=== PATIENT | male | born 1980 | race Caucasian/White ===

== ENCOUNTER 2017-12-01 16:45 | Emergency (ER) | payer OTHER, MEDICAID ==
[~2017-12-01] VITALS: Ht 172.7 cm; Wt 99.8 kg
[~2017-12-01 16:45] MED LIST: AMOXICILLIN 50500 MG PO; ANTIVERT25 MG PO; BACTRIM DS TAB1 EACH PO; CEPHALEXIN 500500 M3 PO; CIPRO500 MG PO; CYCLOBENZAPRINE5 MG PO; CYMBALTA20 MG PO; CYMBALTA60 MG; DOXEPIN 10 MG C10 M1; FLEXERIL PO; GABAPENTIN 100100 MG PO; HYDROCODONE-ACE15 ML PO; HYDROCODONE-AP1 EAC6 PO; HYDROCODONE-APA1 TA1 PO; IBUPROFEN 800800 M1; IBUPROFEN 800800 M1 PO; LIORESAL 10 MG10 MG PO; LISINOPRIL10 MG PO; MEDROLDOSEPACK PO; MOBIC7.5 MG PO; MOTION RELIEF25 MG PO; NAPROSYN500 M1 PO; NORCO 5-325 TA1 EAC1 PO; NORCO 5-325 TA1 EACH PO; OMEPRAZOLE20 M1 PO; OMEPRAZOLE5 GM; ONDANSETRON HCL4 M2 PO; PAXIL10 MG PO; PAXIL20 MG PO; PERCOCET 5-3251 EACH PO; PERCOCET 7.5-31 EACH PO; PROTONIX 20 MG20 M1; ROBAXIN 750 MG750 M1 PO; TORADOL 10 MG T10 MG PO; TRAMADOL 50 MG50 MG PO; XANAX 0.5 MG0.5 MG PO; XANAX1 MG; XANAX1 MG PO; ZANAFLEX4 MG PO; ZOFRAN ODT4 MG PO
[2017-12-01] MEDS ORDERED: LEXAPRO 10 MG T10 M2 PO (16:59)
[2017-12-01 17:58] VITALS: BP 134/78
== END 2017-12-01 17:59 | disposition home or self-care (01) ==
LOC: M.ERS 16:45
DX: S61.412A Laceration without foreign body of left hand, initial encounter (principal); F32.9 Major depressive disorder, single episode, unspecified; F41.9 Anxiety disorder, unspecified; F17.210 Nicotine dependence, cigarettes, uncomplicated; Z88.8 Allergy status to other drugs, medicaments and biological substances; Z88.5 Allergy status to narcotic agent; W27.0XXA Contact with workbench tool, initial encounter; Y93.89 Activity, other specified; Y92.89 Other specified places as the place of occurrence of the external cause; Y99.8 Other external cause status

== ENCOUNTER 2017-12-19 19:23 | Emergency (ER) | payer OTHER, MEDICAID ==
[~2017-12-19] VITALS: Ht 172.7 cm; Wt 90.7 kg
[~2017-12-19 19:23] MED LIST changes: +LEXAPRO 10 MG T10 M2 PO
[2017-12-19 19:44] LABS: URINE BILIRUBIN NEGATIVE (Negative); URINE BLOOD NEGATIVE (Negative); URINE CLARITY CLEAR; URINE COLOR DARK YELLOW; URINE GLUCOSE-RANDOM NEGATIVE (Negative); URINE KETONES NEGATIVE (Negative); URINE LEUKOCYTES-REFLEX NEGATIVE (Negative); URINE NITRITE-REFLEX NEGATIVE (Negative); URINE PROTEIN TRACE (Negative); URINE SPECIFIC GRAVITY >= 1.030 (1.005-1.030); URINE UROBILINOGEN 0.2 E.U./dl (0.2-1.0)
[2017-12-19 19:49] LABS: ABSOLUTE BASOPHILS 0.1 thou/uL (0.0-0.2); ABSOLUTE EOSINOPHILS 0.2 thou/uL (0.0-0.7); ABSOLUTE LYMPHOCYTES 2.5 thou/uL (0.8-5.3); ABSOLUTE MONOCYTES 0.6 thou/uL (0.0-1.2); BASOPHILS 0.6 %; EOSINOPHILS 2.1 %; HEMATOCRIT 44.4 % (42.0-52.0); HEMOGLOBIN 15.2 gm/dL (14.0-18.0); LYMPHOCYTES 22.2 %; MCH 31.2 pg (26.0-34.0); MCHC 34.2 g/dL (28.0-37.0); MCV 91.2 fL (80.0-100.0); MONOCYTES 5.1 %; MPV 7.2 fl. (7.2-11.1); NUCLEATED RBCS 0 /100WBC; PLATELET COUNT* 235 thou/uL (150-400); RBC 4.87 mil/uL (4.50-6.00); RDW-CV 13.5 % (10.5-14.5); WBC 11.4 thou/uL (4.0-11.0)
[2017-12-19 19:50] LABS: AMP/METHAMP POSITIVE (Negative); BARBITURATES Negative (Negative); BENZODIAZEPINES POSITIVE (Negative); COCAINE Negative (Negative); METHADONE Negative (Negative); OPIATES Negative (Negative); PCP Negative (Negative); THC Negative (Negative)
[2017-12-19 20:05] LABS: ANION GAP 9 mmol/L (7-16); BUN 17 mg/dL (7-18); CALCIUM 8.6 mg/dL (8.5-10.1); CHLORIDE 108 mmol/L (98-107); CO2 24 mmol/L (21-32); GLUCOSE 118 mg/dL (70-99); POTASSIUM 3.5 mmol/L (3.5-5.1); SALICYLATE < 2.8 mg/dL (2.8-20.0); SODIUM 141 mmol/L (136-145)
[2017-12-19 20:06] LABS: ACETAMINOPHEN < 2 ug/mL (10-30)
[2017-12-19 20:22] LABS: ALKALINE PHOSPHATASE 78 U/L (46-116); SGOT 28 U/L (15-37); SGPT 37 U/L (30-65); TOTAL BILIRUBIN 0.7 mg/dL (<0.1-1.0); TOTAL PROTEIN 7.2 g/dL (6.4-8.2); TROPONIN-I LEVEL <0.06 ng/mL (<0.06)
[2017-12-19 21:18] VITALS: BP 121/70
--- NOTE | 2017-12-21 14:45 | EKG ---
[place] [address] ELECTROCARDIOGRAM REPORT Name: ORTIZ JEROME 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: MARK : 1980 Requested By: Luzma Arroyo Order Number: [id number] MD: Gt Fulton Measurements Intervals [place] Rate: 101 P: 51 WI: 128 QRS: 3 QRSD: 91 T: 20 QT: 351 QTc: 455 Interpretive Statements Sinus tachycardia Abnormal R-wave progression, late transition Compared to ECG 02/11/2016 10:21:39 Sinus rhythm no longer present Electronically Signed On 12-21-2017 14:45:22 CDT by Gt Fulton [email or web address] <ELECTRONICALLY SIGNED> By: Gt Fulton MD, [facility] 12/21/17 1445 40 40 Gt Fulton MD, FACC /EPI
== END 2017-12-19 21:19 | disposition home or self-care (01) ==
LOC: M.ERS 19:23
PROVIDERS: Emergency Medicine
DX: E86.0 Dehydration (principal); F19.10 Other psychoactive substance abuse, uncomplicated; F41.9 Anxiety disorder, unspecified; F32.9 Major depressive disorder, single episode, unspecified; I10 Essential (primary) hypertension; F17.210 Nicotine dependence, cigarettes, uncomplicated; Z88.6 Allergy status to analgesic agent; Z88.8 Allergy status to other drugs, medicaments and biological substances

== ENCOUNTER 2017-12-20 19:54 | Emergency (ER) | payer OTHER, MEDICAID ==
[~2017-12-20] VITALS: Ht 172.7 cm; Wt 90.7 kg
[2017-12-20 20:46] VITALS: BP 106/54
== END 2017-12-20 20:40 | disposition left against medical advice (07) ==
LOC: M.ERS 19:54
DX: M79.671 Pain in right foot (principal); M79.672 Pain in left foot; F41.9 Anxiety disorder, unspecified; F32.9 Major depressive disorder, single episode, unspecified; I10 Essential (primary) hypertension; F17.210 Nicotine dependence, cigarettes, uncomplicated

== ENCOUNTER 2018-01-25 13:00 | Emergency (ER) | payer OTHER, MEDICAID ==
[~2018-01-25] VITALS: Ht 172.7 cm; Wt 99.8 kg
[2018-01-25 13:35] LABS: URINE BILIRUBIN NEGATIVE (Negative); URINE BLOOD NEGATIVE (Negative); URINE CLARITY CLEAR; URINE COLOR YELLOW; URINE GLUCOSE-RANDOM NEGATIVE (Negative); URINE KETONES TRACE (Negative); URINE LEUKOCYTES-REFLEX NEGATIVE (Negative); URINE NITRITE-REFLEX NEGATIVE (Negative); URINE PROTEIN NEGATIVE (Negative); URINE UROBILINOGEN 0.2 E.U./dl (0.2-1.0)
[2018-01-25 13:39] LABS: ABSOLUTE EOSINOPHILS 0.2 thou/uL (0.0-0.7); ABSOLUTE MONOCYTES 0.6 thou/uL (0.0-1.2); ABSOLUTE NEUTROPHILS 4.9 thou/uL (1.6-8.1); BASOPHILS 0.5 %; EOSINOPHILS 2.4 %; HEMATOCRIT 44.7 % (42.0-52.0); HEMOGLOBIN 15.5 gm/dL (14.0-18.0); LYMPHOCYTES 34.2 %; MCH 31.9 pg (26.0-34.0); MCHC 34.6 g/dL (28.0-37.0); MCV 92.3 fL (80.0-100.0); MONOCYTES 6.5 %; MPV 7.4 fl. (7.2-11.1); NUCLEATED RBCS 0 /100WBC; PLATELET COUNT* 252 thou/uL (150-400); POLYS 56.4 %; RBC 4.84 mil/uL (4.50-6.00); RDW-CV 13.1 % (10.5-14.5); WBC 8.7 thou/uL (4.0-11.0)
[2018-01-25 13:42] LABS: AMP/METHAMP POSITIVE (Negative); BARBITURATES Negative (Negative); BENZODIAZEPINES POSITIVE (Negative); COCAINE Negative (Negative); METHADONE Negative (Negative); OPIATES POSITIVE (Negative); PCP Negative (Negative); THC POSITIVE (Negative)
[2018-01-25 13:45] LABS: CREATININE 0.9 mg/dL (0.6-1.3); POTASSIUM 3.5 mmol/L (3.5-5.1)
[2018-01-25 13:50] LABS: ALBUMIN 3.8 g/dL (3.4-5.0); TOTAL BILIRUBIN 0.3 mg/dL (<0.1-1.0); TOTAL PROTEIN 6.9 g/dL (6.4-8.2)
[2018-01-25 13:56] LABS: ACETAMINOPHEN < 2 ug/mL (10-30); ALCOHOL 13 mg/dL (<10); SALICYLATE 2.7 mg/dL (2.8-20.0)
[2018-01-26] MEDS ORDERED: XANAX1 MG PO (11:26)
[2018-01-26 13:06] VITALS: BP 124/71
== END 2018-01-26 13:07 ==
LOC: M.ERS 13:00
PROVIDERS: Emergency Medicine
DX: R45.851 Suicidal ideations (principal); F41.9 Anxiety disorder, unspecified; F32.9 Major depressive disorder, single episode, unspecified; I10 Essential (primary) hypertension; F17.210 Nicotine dependence, cigarettes, uncomplicated; Z88.6 Allergy status to analgesic agent; Z88.8 Allergy status to other drugs, medicaments and biological substances

== ENCOUNTER 2018-06-08 15:21 | Emergency (ER) | payer OTHER, MEDICAID ==
[~2018-06-08] VITALS: Ht 172.7 cm; Wt 90.7 kg
[2018-06-08 16:47] VITALS: BP 158/103
== END 2018-06-08 16:48 | disposition left against medical advice (07) ==
LOC: M.ERS 15:21
DX: Z53.21 Procedure and treatment not carried out due to patient leaving prior to being seen by health care provider (principal)